=== PATIENT | female | born 1960 | race Caucasian/White ===

== ENCOUNTER 2016-07-01 09:23 | Emergency (ER) | payer OTHER ==
[~2016-07-01 09:23] MED LIST: ADV250INH IH; ALBU2.5V15 IH; ALBU8.5H2 IH; CETI10CA PO; CHOL100045 PO; DIAZ5TAB PO; FLUT9.9S NS; HYDR25CA PO; MONT10TA23 PO; OMEP-113 PO; ONDA8TAB7 PO; PRE20 PO; SCOP1PAT TD; VALA500T38 PO
[2016-07-01 09:56] VITALS: BP 134/78; PULSE 68; RESP 16; O2SAT 100
--- NOTE | 2016-07-01 10:03 | ED.REPORT ---
HPI-Abd Pain F 40 and Over Date of Service Jul 01, 2016 ED Provider: Amadeo Parisi MD 55 year old female presents to the ER complaining of 6 days of dizziness and nausea, markedly worsening three days ago. Associated symptoms include nasal congestion, loss of hearing, unsteady gait, cough, diaphoresis, subjective fever , and vomiting. Patient denies abdominal pain, diarrhea, urinary symptoms, and SOB. Symptoms have been treated with Zofran, meclizine, Benadryl, and asthma medications. She is a nurse here in the ER. Nursing Notes Stated Complaint: DIZZY, NAUSEA Chief Complaint: Female Abdominal Pain Nursing Notes Reviewed: Yes Allergies: Coded Allergies: indomethacin (Verified Allergy, Severe, WHEEZING, 10/19/14) aspirin (Verified Allergy, Unknown, 10/19/14) per h&p atenolol (Verified Allergy, Unknown, 10/19/14) per h&p promethazine (Verified Adverse Reaction, Unknown, 10/19/14) intolerance per h&p Scheduled Cetirizine HCl (Zyrtec) 10 Mg Capsule 10 MG PO HS Cholecalciferol (Vitamin D3) (Vitamin D) 1,000 Unit Capsule 1,000 UNIT PO DAILY Diazepam (Valium) 5 Mg Tablet 5 MG PO DAILY Fluticasone Propionate (Flonase Allergy Relief) 9.9 Ml [place].susp 50 MCG NS DAILY Fluticasone/Salmeterol (Advair 250-50 Diskus) 60 Puff/Inh Disk 1 PUFF IH BID Montelukast (Montelukast) 10 Mg Tablet 10 MG PO HS Omeprazole Magnesium (Omeprazole) 20 Mg Capsule.dr 20 MG PO BID Prednisone (PredniSONE) 20 Mg Tablet 20 MG PO DAILY Scheduled PRN Albuterol HFA (Proair HFA) 8.5 Gm Hfa.aer.ad 2 PUFFS IH Q4 PRN PRN For Wheezing Albuterol Sulfate (Albuterol Inhalant Solution) 2.5 Mg/0.5 Ml Vial.neb 2.5 MG IH Q4 PRN PRN For Shortness of Breath Hydroxyzine Pamoate (Vistaril) 25 Mg Capsule 25 MG PO QID PRN PRN For Itching Ondansetron ODT (Zofran ODT) 8 Mg Tab.rapdis 8 MG PO Q8 PRN PRN For Nausea Scopolamine (Transderm-Scop) 1 Each Patch.td72 1 EACH TD PRN For Nausea Miscellaneous Medications Valacyclovir (Valacyclovir) 500 Mg Tablet 500 MG PO General Time Seen by MD: 09:58 Chief Complaint Other (Dizziness) Hx Obtained From: Patient Arrived By: Walk-in Sudden in Onset?: No Onset Occurred: 6 days ago Symptom Duration: Since onset Progression since Onset: Gradually worsening Associated with: Reports: Fever, Nausea, Vomiting, Denies: Chest pain, Diarrhea, Dysuria, Shortness of breath, Urinary tract symptoms Pertinent Negative: Pt denies other symptoms Similar Sx Previous: No Past Medical History Past Medical History Reports: Asthma, COPD, GERD Past Surgical History Left wrist Septoplasty Reports: Tubal ligation Smoking History Never Smoker Social History Alcohol Use: "Social" (Occasional) Ambulatory Status Independent Review of Systems Constitutional: Reports: Fever Respiratory: Reports: Non-productive cough, Denies: Shortness of breath Cardiovascular: Denies: Chest pain GI: Reports: Nausea, Vomiting, Denies: Abdominal pain, Constipation, Diarrhea Female: Denies: Dysuria, Flank pain, Urinary frequency, Urinary urgency, Urination decreased, Urination increased Complete sys rev & neg: except as marked. Ears / Nose / Throat: Reports: Hearing loss bilateral, Nasal congestion Skin: Reports Diaphoresis Neurologic: Reports: Dizziness, Problem walking Physical Exam Vital Signs Reviewed and within normal limits. Initial VS: Reviewed Head / Eyes: Atraumatic, Normocephalic Neck: Supple, Non-tender, Full range of motion Extremities: Vascular intact, Neuro intact, No swelling, No tenderness Neurologic: Alert, Oriented, Nonfocal General/Constitutional: Awake, Alert, Well developed, Well nourished Respiratory / Chest: Breath sounds NL, Breath sounds = bilat, No respiratory distress, No rales, No rhonchi, No wheezing, No stridor Cardiovascular: Heart rate NL, Regular rhythm, Heart sounds NL, Peripheral circulation NL Abdomen: Soft, Non-tender, McBurney's non-tender, No guarding, No rebound, BS normoactive, No distention, No hernia, No palpable mass, No pulsatile mass ENT: Airway patent, Mucous membranes moist, Pharynx NL Right Ear / Mastoid: Positive: Tympanic membrane red TMs bulging and effused bilaterally. Re-Eval/Medical Decision Source of Hx: Old records Re-Evaluation/Progress : Time of Eval: 10:12 Re-Evaluation/Progress Note: Discussed physical examination findings and plan to discharge. Patient is amenable to the plan. Return precautions given. All other questions addressed. Counseled Regarding: Diagnosis, Lab results, Need for follow-up, When/why to return to ED Discharge & Departure Primary Impression: Bilateral otitis media with effusion Additional Impression: Vertigo Disposition: Home Discharge Condition All VS Reviewed: Yes Condition: Stable Patient Instructions: Otitis Media (ED) Additional Instructions: You have dense and severe bilateral otitis media with effusion. I think this is the explanation for your severe and unrelenting dizziness and nausea. The kasper to feeling better will be to get the fluid to drain. As a first step I recommend amoxicillin 875 twice daily and dexamethasone 4 mg twice daily. Continue the antinausea and anti-vertigo treatments you have been using. I tried to make an appointment at the ENT office but they will not take our referral because of your group health insurance. Call the PCP office today and ask them to make a referral or at least to see you on Friday or if you are not improving. If you are having trouble with this just call me directly [phone] Referrals: Juliana Victroia MD (PCP) Gray Attestation Portions of this note were transcribed by Jose Antonio Mcdaniel. I, Dr. Parisi, personally performed the history, physical exam and medical decision-making; I reviewed and confirmed the accuracy of the information in the transcribed note. Signed by: Gray Ramirez, 07/01/2016 and 10:15 copies to: Juliana Victoria MD, Kirk H MD Jul 01, 2016 10:03 JOSE ANTONIO MCDANIEL Jul 01, 2016 10:12
[2016-07-01] MEDS ORDERED: AMOX875T2 PO (10:26)
[2016-07-01] MEDS ORDERED: DXM4T PO (10:26)
[2016-10-02] MEDS ORDERED: KETO10TA PO (09:14)
[2016-10-02] MEDS ORDERED: BACL10TA PO (09:14)
[2016-10-02] MEDS ORDERED: OMEP20CA11 PO (09:18)
[2016-10-02] MEDS ORDERED: MECL-114 PO (09:22)
[2016-10-02] MEDS ORDERED: ESTR10TA VG (09:22)
[2016-10-02] MEDS ORDERED: MONT10TA23 PO (09:22)
== END 2016-07-01 11:03 | disposition home or self-care (01) ==
LOC: SED 09:23
DX: H65.93 Unspecified nonsuppurative otitis media, bilateral (principal); R42 Dizziness and giddiness; R05 Cough; R26.81 Unsteadiness on feet; R50.9 Fever, unspecified; R11.2 Nausea with vomiting, unspecified; R61 Generalized hyperhidrosis; J44.9 Chronic obstructive pulmonary disease, unspecified; K21.9 Gastro-esophageal reflux disease without esophagitis; Z88.8 Allergy status to other drugs, medicaments and biological substances

== ENCOUNTER 2016-11-06 11:30 | Day surgery (SDC) | payer OTHER ==
[~2016-11-06] VITALS: Ht 157.5 cm; Wt 68.0 kg
[~2016-11-06 11:30] MED LIST changes: -ALBU2.5V15 IH; +BACL10TA PO; -CETI10CA PO; -DIAZ5TAB PO; +ESTR10TA VG; +KETO10TA PO; +Lidocaine Topical 2% 30 mL Jelly ONE; +MECL-114 PO; -OMEP-113 PO; +OMEP20CA11 PO; -PRE20 PO; -SCOP1PAT TD; +fentaNYL-PF 50 mCg/mL 2 mL Inj IVPUSH PRN
[2016-11-06 12:40] VITALS: BP 109/69; PULSE 62; RESP 14; O2SAT 100
[2016-11-06] MEDS ORDERED: 0.9% Sodium Chloride 1,000 ML IV ONE (13:27)
[2016-11-06 13:34] VITALS: BP 118/75; PULSE 66; RESP 15; O2SAT 100
[2016-11-06 14:05] VITALS: BP 109/73; PULSE 66; RESP 14; O2SAT 100
[2016-11-06 14:10] VITALS: BP 127/79; PULSE 76; RESP 16; O2SAT 100
--- NOTE | 2016-11-06 15:16 | ENDO ---
[address] [address] ENDOSCOPY PROCEDURE PATIENT: GALILEA JORDAN : 1960 MR#: [id number] ADMIT: 11/06/2016 JOB ID: [id number] DATE: 11/06/2016 PRE-PROCEDURE DIAGNOSIS: GERD. POSTPROCEDURE DIAGNOSIS: GERD. PROCEDURE PERFORMED: Upper endoscopy with cold forceps biopsy and Rodriguez pH probe placement. SURGEON: Mckenna Elena M.D. INSTRUMENT: Olympus GIF H 180 J. MEDICATIONS: 1. Versed 8 mg. 2. Fentanyl 125 mcg. FINDINGS: GE junction was at 39 cm. No hiatal hernia identified. LA grade A esophagitis. Fundic gland polyps, one was biopsied. Otherwise normal endoscopy. The RODRIGUEZ probe was placed at 36 cm. Six tiny ulcers in the fundus. HISTORY OF PRESENT ILLNESS: This is a 56-year-old woman with severe reflux. She was interested in anti reflux surgery, therefore, endoscopy and Rodriguez pH probes were scheduled for a workup. His. DESCRIPTION OF PROCEDURE: The patient was brought to the endoscopy suite, and placed in left lateral decubitus position. Moderate anesthesia was induced after a procedural pause was performed. A bite block was placed. The endoscope was advanced into the proximal esophagus, which was normal. The distal esophagus demonstrated only trace mild esophagitis at the GE junction which was at 39 cm. There is no hiatal hernia identified. The endoscope was advanced into the stomach. There were only a few scattered benign appearing fundic gland polyps in the fundus and body. One was removed with cold forceps biopsies. On retroflex view of the stomach, in the fundus, were six tiny less than 5 mm ulcerations. There were no masses associated with these. The endoscope was advanced to the proximal third portion of the duodenum which was normal. No additional abnormalities were seen. Once the endoscope was completely withdrawn, the Rodriguez probe was placed at 33 cm. Repeat esophagogastroscopy revealed the Rodriguez probe in adequate position. The endoscope was withdrawn. The patient tolerated the procedure well. ESTIMATED BLOOD LOSS: None. COMPLICATIONS: None. SPECIMENS: Gastric polyp x1.
--- NOTE | 2016-11-07 15:37 | PATH ---
SURGICAL PATHOLOGY Attending Physician:Mckenna Elena MD CASE STATUS: Signed Out PATIENT NAME: GALILEA JORDAN PID: [id number] : 1960 DATE COLLECTED:11/06/2016 19:55 SPECIMEN: Stomach, Polyp, Biopsy CLINICAL HISTORY: 1). GASTRIC POLYP FINAL DIAGNOSIS: 1.GASTRIC POLYP: FUNDIC GLAND POLYP. Negative for Helicobacter organisms. Negative for intestinal metaplasia. Negative for dysplasia and malignancy. ICD10 K31.7 GROSS DESCRIPTION: The specimen is received in one formalin filled container labeled with the patient's name, sublabeled "gastric polyp" and consists of a zero 0.2 x 0.1 CM portion of tissue which is entirely submitted in one cassette. 11/06/2016DC MICRO DESCRIPTION: See diagnosis. ICD-9 CODES: CPT CODES: 1: 56060 Electronically Signed Out Madelyn Christina MD [facility] [address], [place] [address] Technical component performed at [facility], [facility] [address], [place], [address]
== END 2016-11-06 23:59 | disposition home or self-care (01) ==
LOC: END 11:30
PROVIDERS: ATTEND Surgery
DX: K31.7 Polyp of stomach and duodenum (principal); K20.9 Esophagitis, unspecified; K25.9 Gastric ulcer, unspecified as acute or chronic, without hemorrhage or perforation; K21.9 Gastro-esophageal reflux disease without esophagitis; J45.909 Unspecified asthma, uncomplicated; G43.909 Migraine, unspecified, not intractable, without status migrainosus; M54.81 Occipital neuralgia; Z79.51 Long term (current) use of inhaled steroids
CPT/HCPCS: 43239; 91010; 91037; 99153; G0500; J2250; J3010; J7030

== ENCOUNTER 2016-11-08 00:24 | Day surgery (SDC) | payer OTHER ==
[~2016-11-08 00:24] MED LIST changes: -Lidocaine Topical 2% 30 mL Jelly ONE; -OMEP20CA11 PO; -fentaNYL-PF 50 mCg/mL 2 mL Inj IVPUSH PRN
== END 2016-11-08 23:59 | disposition home or self-care (01) ==
LOC: END 00:24
PROVIDERS: ATTEND Surgery
DX: K21.9 Gastro-esophageal reflux disease without esophagitis (principal); R94.8 Abnormal results of function studies of other organs and systems